=== PATIENT | male | born 1950 | race Caucasian/White ===

== ENCOUNTER 2016-06-27 12:17 | Emergency (ER) | payer OTHER ==
[~2016-06-27] VITALS: Wt 78.0 kg
[~2016-06-27 12:17] MED LIST: BACTDS PO; CIPR500T4 PO; CLOT30CR24 TOP; IBUP-1542 PO; PROM6.25 PO
[2016-06-27] MEDS ORDERED: KETOROLAC 30 MG INJ IM STA ×2 (14:32→14:37)
[2016-06-27] MEDS ORDERED: CARI350T PO (14:38)
[2016-06-27] MEDS ORDERED: IBUP-1542 PO (14:38)
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
[2016-06-27 16:40] VITALS: BP 132/76; PULSE 66; RESP 20; TEMP 98.2
== END 2016-06-27 16:41 | disposition home or self-care (01) ==
LOC: FTE 12:17
DX: S33.5XXA Sprain of ligaments of lumbar spine, initial encounter (principal); I10 Essential (primary) hypertension; X58.XXXA Exposure to other specified factors, initial encounter; Y92.9 Unspecified place or not applicable
CPT/HCPCS: 96372; 99284; J1885

== ENCOUNTER 2017-09-17 13:54 | Emergency (ER) | END 2017-09-17 15:24 | disposition left against medical advice (07) ==

== ENCOUNTER 2017-12-31 17:39 | Emergency (ER) | END 2017-12-31 19:06 | disposition home or self-care (01) ==